=== PATIENT | male | born 1940 | race Two or more races ===

== ENCOUNTER 2018-10-28 13:00 | Outpatient (CLI) | payer MEDICARE, OTHER | END 2018-10-28 23:59 | disposition home or self-care (01) | LOC: WOU 13:00 | PROVIDERS: ATTEND Podiatrist Foot & Ankle Surgery | DX: I87.312 Chronic venous hypertension (idiopathic) with ulcer of left lower extremity (principal); L97.822 Non-pressure chronic ulcer of other part of left lower leg with fat layer exposed; Z87.891 Personal history of nicotine dependence; Z86.718 Personal history of other venous thrombosis and embolism; Z79.899 Other long term (current) drug therapy; R60.1 Generalized edema; I10 Essential (primary) hypertension | CPT/HCPCS: 11042 ==

== ENCOUNTER 2018-11-04 12:45 | Outpatient (CLI) | payer MEDICARE, OTHER | END 2018-11-04 23:59 | disposition home or self-care (01) | LOC: WOU 12:45 | PROVIDERS: ATTEND Podiatrist Foot & Ankle Surgery | DX: I87.8 Other specified disorders of veins (principal); R60.0 Localized edema; B35.1 Tinea unguium | CPT/HCPCS: A6402; G0463 ==

== ENCOUNTER 2018-12-09 13:00 | Outpatient (CLI) | payer MEDICARE, OTHER | END 2018-12-09 23:59 | disposition home or self-care (01) | LOC: WOU 13:00 | PROVIDERS: ATTEND Podiatrist Foot & Ankle Surgery | DX: I87.303 Chronic venous hypertension (idiopathic) without complications of bilateral lower extremity (principal); Z98.890 Other specified postprocedural states | CPT/HCPCS: A6402; G0463 ==

== ENCOUNTER 2019-04-20 09:30 | Outpatient (CLI) | payer MEDICARE, OTHER | END 2019-04-20 23:59 | disposition home or self-care (01) | LOC: WOU 09:30 | PROVIDERS: ATTEND Podiatrist Foot & Ankle Surgery | DX: I87.2 Venous insufficiency (chronic) (peripheral) (principal); I89.0 Lymphedema, not elsewhere classified; L85.3 Xerosis cutis; I10 Essential (primary) hypertension; I48.91 Unspecified atrial fibrillation; Z79.01 Long term (current) use of anticoagulants; Z87.891 Personal history of nicotine dependence | CPT/HCPCS: G0463 ==

== ENCOUNTER 2019-05-04 09:20 | Outpatient (CLI) | payer MEDICARE, OTHER | END 2019-05-04 23:59 | disposition home or self-care (01) | LOC: WOU 09:20 | PROVIDERS: ATTEND Podiatrist Foot & Ankle Surgery | DX: I89.0 Lymphedema, not elsewhere classified (principal); I87.2 Venous insufficiency (chronic) (peripheral); Z79.01 Long term (current) use of anticoagulants | CPT/HCPCS: G0463 ==

== ENCOUNTER 2019-06-08 08:45 | Outpatient (CLI) | payer MEDICARE, OTHER | END 2019-06-08 23:59 | disposition home or self-care (01) | LOC: WOU 08:45 | PROVIDERS: ATTEND Podiatrist Foot & Ankle Surgery | DX: I87.2 Venous insufficiency (chronic) (peripheral) (principal); B35.1 Tinea unguium; L84 Corns and callosities; L85.3 Xerosis cutis; M79.671 Pain in right foot; M79.672 Pain in left foot; I10 Essential (primary) hypertension; R60.1 Generalized edema; Z79.01 Long term (current) use of anticoagulants | CPT/HCPCS: G0463 ==

== ENCOUNTER 2019-08-10 08:50 | Outpatient (CLI) | payer MEDICARE, OTHER | END 2019-08-10 23:59 | disposition home or self-care (01) | LOC: WOU 08:50 | PROVIDERS: ATTEND Podiatrist Foot & Ankle Surgery | DX: L89.893 Pressure ulcer of other site, stage 3 (principal); I87.2 Venous insufficiency (chronic) (peripheral); L84 Corns and callosities; L85.3 Xerosis cutis; B35.1 Tinea unguium; I10 Essential (primary) hypertension; M79.672 Pain in left foot; Z87.891 Personal history of nicotine dependence; Z79.01 Long term (current) use of anticoagulants | CPT/HCPCS: 11042 ==

== ENCOUNTER 2019-09-03 09:55 | Outpatient (CLI) | payer MEDICARE, OTHER | END 2019-09-03 23:59 | disposition home or self-care (01) | LOC: WOU 09:55 | PROVIDERS: ATTEND Podiatrist Foot & Ankle Surgery | DX: Z09 Encounter for follow-up examination after completed treatment for conditions other than malignant neoplasm (principal); L84 Corns and callosities; I87.2 Venous insufficiency (chronic) (peripheral); R60.1 Generalized edema; I89.0 Lymphedema, not elsewhere classified; L85.3 Xerosis cutis; I10 Essential (primary) hypertension; M20.42 Other hammer toe(s) (acquired), left foot; Z86.718 Personal history of other venous thrombosis and embolism; I48.91 Unspecified atrial fibrillation; Z79.01 Long term (current) use of anticoagulants | CPT/HCPCS: G0463 ==

== ENCOUNTER 2019-09-10 09:00 | Outpatient (CLI) | payer MEDICARE, OTHER | END 2019-09-10 23:59 | disposition home or self-care (01) | LOC: WOU 09:00 | PROVIDERS: ATTEND Podiatrist Foot & Ankle Surgery | DX: L89.893 Pressure ulcer of other site, stage 3 (principal); L84 Corns and callosities; M20.42 Other hammer toe(s) (acquired), left foot; I87.8 Other specified disorders of veins; L85.3 Xerosis cutis; I10 Essential (primary) hypertension; R60.0 Localized edema; B35.1 Tinea unguium | CPT/HCPCS: 11042 ==

== ENCOUNTER 2019-09-17 09:00 | Outpatient (CLI) | payer MEDICARE, OTHER | END 2019-09-17 23:59 | disposition home or self-care (01) | LOC: WOU 09:00 | PROVIDERS: ATTEND Podiatrist Foot & Ankle Surgery | DX: L89.893 Pressure ulcer of other site, stage 3 (principal); I87.2 Venous insufficiency (chronic) (peripheral); L84 Corns and callosities; B35.1 Tinea unguium; R60.1 Generalized edema; I10 Essential (primary) hypertension; M79.672 Pain in left foot; Z79.01 Long term (current) use of anticoagulants | CPT/HCPCS: 11042 ==

== ENCOUNTER 2019-09-24 09:20 | Outpatient (CLI) | payer MEDICARE, OTHER | END 2019-09-24 23:59 | disposition home or self-care (01) | LOC: WOU 09:20 | PROVIDERS: ATTEND Podiatrist Foot & Ankle Surgery | DX: L89.893 Pressure ulcer of other site, stage 3 (principal); I87.2 Venous insufficiency (chronic) (peripheral); R60.1 Generalized edema; I10 Essential (primary) hypertension; L84 Corns and callosities; M79.672 Pain in left foot; B35.1 Tinea unguium; Z79.01 Long term (current) use of anticoagulants | CPT/HCPCS: 11042 ==

== ENCOUNTER 2019-10-01 09:05 | Outpatient (CLI) | payer MEDICARE, OTHER | END 2019-10-01 23:59 | disposition home or self-care (01) | LOC: WOU 09:05 | PROVIDERS: ATTEND Podiatrist Foot & Ankle Surgery | DX: L89.893 Pressure ulcer of other site, stage 3 (principal); I87.2 Venous insufficiency (chronic) (peripheral); L84 Corns and callosities; M20.42 Other hammer toe(s) (acquired), left foot; R60.0 Localized edema; B35.1 Tinea unguium; Z79.01 Long term (current) use of anticoagulants | CPT/HCPCS: 11042 ==

== ENCOUNTER 2019-10-08 08:55 | Outpatient (CLI) | payer MEDICARE, OTHER | END 2019-10-08 23:59 | disposition home or self-care (01) | LOC: WOU 08:55 | PROVIDERS: ATTEND Podiatrist Foot & Ankle Surgery | DX: L89.893 Pressure ulcer of other site, stage 3 (principal); I87.2 Venous insufficiency (chronic) (peripheral); L84 Corns and callosities; M20.42 Other hammer toe(s) (acquired), left foot; L85.3 Xerosis cutis; M79.672 Pain in left foot; R60.1 Generalized edema; Z79.01 Long term (current) use of anticoagulants | CPT/HCPCS: 11042 ==

== ENCOUNTER 2019-10-15 09:00 | Outpatient (CLI) | payer MEDICARE, OTHER | END 2019-10-15 23:45 | disposition home or self-care (01) | LOC: WOU 09:00 | PROVIDERS: ATTEND Podiatrist Foot & Ankle Surgery | DX: L89.893 Pressure ulcer of other site, stage 3 (principal); I87.2 Venous insufficiency (chronic) (peripheral); M20.42 Other hammer toe(s) (acquired), left foot; L84 Corns and callosities; M72.2 Plantar fascial fibromatosis; M79.672 Pain in left foot; L85.3 Xerosis cutis; B35.1 Tinea unguium; I10 Essential (primary) hypertension; R60.0 Localized edema | CPT/HCPCS: 11042; 73630-TC ==

== ENCOUNTER 2019-10-22 09:11 | Outpatient (CLI) | payer MEDICARE, OTHER | END 2019-10-22 23:59 | disposition home or self-care (01) | LOC: WOU 09:11 | PROVIDERS: ATTEND Podiatrist Foot & Ankle Surgery | DX: M20.42 Other hammer toe(s) (acquired), left foot (principal); I87.2 Venous insufficiency (chronic) (peripheral); L84 Corns and callosities; B35.1 Tinea unguium; R60.0 Localized edema; M79.672 Pain in left foot; M72.2 Plantar fascial fibromatosis; I10 Essential (primary) hypertension; L85.3 Xerosis cutis; Z79.01 Long term (current) use of anticoagulants | CPT/HCPCS: G0463 ==

== ENCOUNTER 2019-10-28 12:49 | Outpatient (CLI) | payer MEDICARE, OTHER | END 2019-10-28 23:59 | disposition home or self-care (01) | LOC: MRI 12:49 | PROVIDERS: ATTEND Podiatrist Foot & Ankle Surgery | DX: M19.072 Primary osteoarthritis, left ankle and foot (principal); M19.071 Primary osteoarthritis, right ankle and foot; M77.32 Calcaneal spur, left foot; M77.31 Calcaneal spur, right foot; I86.8 Varicose veins of other specified sites; M77.52 Other enthesopathy of left foot and ankle; M77.51 Other enthesopathy of right foot and ankle | CPT/HCPCS: 73718-TC; 73721-TC ==

== ENCOUNTER 2019-11-05 08:55 | Outpatient (CLI) | payer MEDICARE, OTHER | END 2019-11-05 23:59 | disposition home or self-care (01) | LOC: WOU 08:55 | PROVIDERS: ATTEND Podiatrist Foot & Ankle Surgery | DX: I87.2 Venous insufficiency (chronic) (peripheral) (principal); M19.072 Primary osteoarthritis, left ankle and foot; L84 Corns and callosities; M72.2 Plantar fascial fibromatosis; M20.42 Other hammer toe(s) (acquired), left foot; B35.1 Tinea unguium; R60.0 Localized edema; Z79.01 Long term (current) use of anticoagulants | CPT/HCPCS: G0463 ==